=== PATIENT | female | born 1970 | race Caucasian/White ===

== ENCOUNTER → 2017-03-27 | Outpatient (CLI) | payer OTHER ==
[2017-03-27 17:41] LABS: ALBUMIN 4.1 GM/DL (3.2-5.2); ALBUMIN/GLOBULIN RATIO 1.11 (1.00-1.93); ALKALINE PHOSPHATASE 89 U/L (45-117); ALT/SGPT 36 U/L (12-78); ANION GAP 7 MEQ/L (8-16); AST/SGOT 17 U/L (15-37); BILIRUBIN,TOTAL 0.5 MG/DL (0.2-1.0); BLOOD UREA NITROGEN 21 MG/DL (7-18); CALCIUM LEVEL 9.6 MG/DL (8.5-10.1); CARBON DIOXIDE LEVEL 26 MEQ/L (21-32); CHLORIDE LEVEL 104 MEQ/L (98-107); CHOLESTEROL LEVEL 209 MG/DL (<200); CREATININE FOR GFR 0.92 MG/DL (0.55-1.02); GLOMERULAR FILTRATION RATE > 60.0 (>58); GLUCOSE, FASTING 101 MG/DL (70-105); POTASSIUM SERUM 4.3 MEQ/L (3.5-5.1); SODIUM LEVEL 137 MEQ/L (136-145); TOTAL PROTEIN 7.8 GM/DL (6.4-8.2); TRIGLYCERIDES LEVEL 52 MG/DL (<150)
== END ==
LOC: M WUC 11:15
PROVIDERS: ATTEND Emergency Medicine
DX: I10 Essential (primary) hypertension (principal); E55.9 Vitamin D deficiency, unspecified; R73.01 Impaired fasting glucose

== ENCOUNTER 2017-05-22 07:43 | Day surgery (SDC) | payer OTHER ==
[~2017-05-22] VITALS: Ht 167.6 cm; Wt 90.7 kg
[2017-05-22] VITALS (7 sets, daily range): BP systolic 99–110; BP diastolic 55–67
[~2017-05-22 07:43] MED LIST: AMIT50TA PO; LOSA100T8 PO; PHEN30CA2 PO
[2017-05-22] MEDS ORDERED: LR 1,000 ML IV SCH ×2 (08:00→12:15)
[2017-05-22] MEDS: LR 1,000 ML IV SCH ×3 (08:14→18:24)
[2017-05-22 08:53] LABS: MEAN CORPUSCULAR HEMOGLOBIN 31.8 pg (27.0-33.0); MEAN CORPUSCULAR HGB CONC 33.9 g/dl (32.0-36.5); MEAN CORPUSCULAR VOLUME 93.8 fl (80.0-96.0); RED CELL DISTRIBUTION WIDTH 13.1 % (11.5-14.5); WHITE BLOOD COUNT 6.1 K/mm3 (4.0-10.0)
[2017-05-22] MEDS: LOSARTAN 50 MG TAB PO SCH (09:00)
[2017-05-22] MEDS: hydroCHLOROthiazide 12.5 MG CAPSULE PO SCH (09:00)
[2017-05-22] MEDS ORDERED: PROPOFOL 200 MG/20 ML VIAL As Ordered ONE ×2 (09:05→09:06)
[2017-05-22] MEDS ORDERED: KETOROLAC 60 MG/2 ML VIAL (J1885) As Ordered ONE ×2 (09:06→11:12)
[2017-05-22] MEDS ORDERED: LIDOCAINE 2% INJ 100 MG/5 ML SDV (FOR ANES.) As Ordered ONE (09:06)
[2017-05-22] MEDS ORDERED: dexameTHASONE 4 MG/ML 1ML VIAL (J1100) As Ordered ONE (09:06)
[2017-05-22] MEDS ORDERED: ONDANSETRON 4MG/2ML VIAL (J2405) As Ordered ONE (09:06)
[2017-05-22] MEDS ORDERED: ROCURONIUM BROMIDE 50 MG/5 ML VIAL/SYRINGE As Ordered ONE ×2 (09:06→10:22)
[2017-05-22] MEDS ORDERED: MIDAZOLAM INJ 2 MG/2 ML VIAL (J2250) As Ordered ONE (10:22)
[2017-05-22] MEDS ORDERED: GLYCOPYRROLATE INJ 0.2 MG/ML 2 ML VIAL As Ordered ONE ×2 (10:22→11:12)
[2017-05-22] MEDS ORDERED: fentaNYL 250 MCG/5 ML INJECTION (J3010) As Ordered ONE (10:22)
[2017-05-22] MEDS ORDERED: NEOSTIGMINE 1MG/ML 5 ML SYRINGE (J2710) As Ordered ONE (11:12)
[2017-05-22] MEDS ORDERED: MORPHINE 1MG/ML IN 0.9% NACL 100ML IV BAG As Ordered ONE (11:47)
[2017-05-22] MEDS: METOCLOPRAMIDE INJ 10MG/2ML VIAL (J2765) IV PRN ×2 (12:00→12:30)
[2017-05-22] MEDS ORDERED: NORCO, ANEXSIA 5/325MG TABLET (HYDROcodone/ACETAMINOPHEN) PO PRN (12:00)
[2017-05-22] MEDS ORDERED: MORPHINE 1MG/ML IN 0.9% NACL 100ML IV BAG IV PRN (12:00)
[2017-05-22] MEDS ORDERED: IBUPROFEN 600 MG TAB PO PRN (12:00)
[2017-05-22] MEDS ORDERED: NALOXONE INJ 0.4 MG/1 ML VIAL (J2310) IV PRN (12:00)
[2017-05-22] MEDS ORDERED: EPIDURAL/PCA KEYS XX PRN (12:00)
[2017-05-22] MEDS ORDERED: diphenhydrAMINE INJ 50MG/ML VIAL (J1200) IV PRN (12:00)
[2017-05-22] MEDS ORDERED: NALBUPHINE HCL 10 MG/ML AMP (J2300) IV PRN (12:00)
[2017-05-22] MEDS ORDERED: PERCOCET 5MG/325MG TAB As Ordered ONE (12:01)
[2017-05-22] MEDS ORDERED: METOCLOPRAMIDE INJ 10MG/2ML VIAL (J2765) As Ordered ONE (12:02)
[2017-05-22] MEDS: PERCOCET 5MG/325MG TAB PO PRN ×2 (12:10→12:38)
[2017-05-22] MEDS ORDERED: MORPHINE 2 MG/ML 1ML SYRINGE IV PRN (12:15)
[2017-05-22] MEDS ORDERED: fentaNYL 100 MCG/2 ML INJECTION (J3010) IV PRN (12:15)
[2017-05-22] MEDS ORDERED: ONDANSETRON 4MG/2ML VIAL (J2405) IV PRN (12:15)
[2017-05-22] MEDS ORDERED: AMITRIPTYLINE 50 MG TAB PO SCH (21:00)
[2017-05-23] VITALS: BP 94/55
[2017-05-23] MEDS: LR 1,000 ML IV SCH ×2 (02:47→04:00)
[2017-05-23 04:00] VITALS: BP 105/64
[2017-05-23] MEDS ORDERED: NORCO, ANEXSIA 5/325MG TABLET (HYDROcodone/ACETAMINOPHEN) PO PRN (06:00)
[2017-05-23 08:00] VITALS: BP 115/56
[2017-05-23 08:22] LABS: MEAN CORPUSCULAR HEMOGLOBIN 32.1 pg (27.0-33.0); MEAN CORPUSCULAR HGB CONC 34.1 g/dl (32.0-36.5); MEAN CORPUSCULAR VOLUME 94.3 fl (80.0-96.0); RED CELL DISTRIBUTION WIDTH 13.3 % (11.5-14.5); WHITE BLOOD COUNT 10.3 K/mm3 (4.0-10.0)
[2017-05-23 09:00] VITALS: BP 115/56
[2017-05-23] MEDS: hydroCHLOROthiazide 12.5 MG CAPSULE PO SCH (09:00)
[2017-05-23] MEDS: LOSARTAN 50 MG TAB PO SCH (09:00)
[2017-05-23] MEDS ORDERED: MOTR200T44 PO (10:03)
[2017-05-23] MEDS ORDERED: LORT5TAB PO (10:03)
--- NOTE | 2017-05-23 15:38 | RO ---
DATE OF PROCEDURE: 05/22/2017 PREOPERATIVE DIAGNOSES/INDICATION FOR SURGERY: Dysmenorrhea, menorrhagia, dyspareunia and tenderness to the uterus on pelvic examination. POSTPROCEDURE DIAGNOSES: Dysmenorrhea, menorrhagia, dyspareunia and tenderness to the uterus on pelvic examination, fibroids. PROCEDURE: Laparoscopic assisted vaginal hysterectomy with bilateral salpingo-oophorectomy. SURGEON: Nasra Sage MD [employer] SALES ASSOCIATE: None. ANESTHESIA: General endotracheal anesthesia. DESCRIPTION OF PROCEDURE: La was brought to the operating room where sufficient general endotracheal anesthesia was induced, and she was prepped, draped and positioned in the usual sterile fashion with the uterine manipulator and the García with the ability to backfill placed. Attention was turned to the abdomen where a transverse incision was made over the line of her previous incision. Sharp and blunt dissection were continued through the subcutaneous tissues to the level of the rectus fascia, which was transversely incised, secured with #0 Vicryl retention sutures and then the peritoneum was entered under direct visualization and the Leslie cannula placed into the peritoneal cavity in an open laparoscopic technique. This was then secured with 0 Vicryl retention suture and CO2 insufflation was then begun. After adequate CO2 insufflation, the peritoneal cavity was examined. There were normal shiny peritoneal surfaces throughout. There were no excrescences, ascites or exudate. There was a left ovarian cyst and some bulkiness to the uterus, consistent with fibroids. This is documented in the operative photos. There was also evidence of a previous tubal ligation and on the descending colon some diverticulum that were not active. There were also some minor adhesions of the descending colon, consistent with diverticular activity in the past. Again, not active now. The 45 Enseal was placed through the operative port at the laparoscope and this was used to cauterize and transect the infundibulopelvic ligaments, which using the uterine manipulator we were elevate well away from the ureters and the bowel. We then continued through the broad ligament and to the round, which was carefully cauterized and incised bilaterally. We then continued the dissection in the broad ligament to facilitate uterine mobility and then using just cold scissors created the bladder flap anteriorly and we back filled the bladder as needed to be sure that we were well away from the bladder with this dissection. We then turned our attention to the vaginal portion of the case. The abdominal instruments were removed and the light turned off. Attention was turned to the cervix. The uterine manipulator was removed. The anterior and posterior aspects of the cervix were grasped with single toothed tenaculum and a circumferential incision was made around the base of the cervix through the vaginal epithelium. Cardinal ligaments were isolated, clamped, transected and ligated using D'Cruz clamps, which were used throughout this portion of the case and #0 Vicryl suture was used throughout this portion of the case. The uterosacral ligaments were then similarly clamped, transected and ligated. The peritoneum and posterior reflection of the peritoneum was entered and the dissection was continued anteriorly to join up where we had already dissected the anterior reflection of the peritoneum and with the bladder safely away and the bowel safely away. We carefully clamped, transected and ligated the uterine vasculature until the uterus could be delivered. The fibroids made the uterus a little wide and a little bulky. We went ahead and transected it down the midline just so that we can get the pedicles into good view, as we dissected them. So the right side of the uterus was delivered with the ovary and tube attached. We the left side just for visualization and then brought that ovary and tube down and completed the dissection and of course all of that dissection of the uterus occurred in the vagina. We then visualized the pedicles using the retractors and sponge on a stick and the pedicles showed good hemostasis, angle stitches of #0 Vicryl were taken. Of course the uterosacrals were incorporated into the closure for support and the vaginal cuff was closed with a running lock stitch of #0 Vicryl. Good approximation and hemostasis achieved. The umbilical wound was carefully closed using the #0 Vicryl retention suture at the fascia and #3-0 Vicryl at the skin. The procedure was then ended. Estimated blood loss for the procedure 100 mL. Fluid replacement was crystalloid. Complications: None. Condition and Disposition: La tolerated the procedure well and was recovering in the recovery room in good condition.
== END 2017-05-23 11:30 | disposition home or self-care (01) ==
LOC: M SDC 07:43 → M PED 12:42 → M SDC 05-23 11:30
PROVIDERS: ATTEND Obstetrics & Gynecology
DX: N94.6 Dysmenorrhea, unspecified (principal); N94.10 Unspecified dyspareunia; N92.0 Excessive and frequent menstruation with regular cycle; D25.9 Leiomyoma of uterus, unspecified; N72 Inflammatory disease of cervix uteri; N84.0 Polyp of corpus uteri; N80.0 Endometriosis of uterus; I10 Essential (primary) hypertension; Z79.899 Other long term (current) drug therapy; Z88.8 Allergy status to other drugs, medicaments and biological substances; Z87.891 Personal history of nicotine dependence
CPT/HCPCS: 36415; 58552; 85027; 86850; 86900; 86901; 88307; J0690; J1100; J1885; J2250; J2405; J2710; J2765; J3010

== ENCOUNTER 2017-07-06 16:26 | Emergency (ER) | payer OTHER ==
[~2017-07-06] VITALS: Ht 167.6 cm; Wt 91.0 kg
[~2017-07-06 16:26] MED LIST changes: +LORT5TAB PO; +MOTR200T44 PO
--- NOTE | 2017-07-06 18:51 | REP ---
Clinical: Trauma. Technique: AP, lateral, bilateral oblique views of the left knee. Findings: Degenerative changes are appreciated including cortical irregularity and spurring . No definite acute fracture or dislocation is appreciated. Swelling and possible small effusion cannot be excluded. Impression: Degenerative changes. No definite acute fracture or dislocation. Signed by Anival Dias MD 07/06/2017 06:43 P
--- NOTE | 2017-07-06 18:52 | REP ---
Clinical: Trauma. Technique: Neutral and frog lateral views of the left femur. Findings: Moderate arthritic degenerative change at the hip and knee joint are appreciated. No obvious acute fracture or dislocation. No subcutaneous emphysema or radiodense foreign body. Impression: Mild/moderate arthritic degenerative changes at the hip and knee. No obvious acute fracture dislocation. Signed by Anival Dias MD 07/06/2017 06:44 P
--- NOTE | 2017-07-06 18:53 | REP ---
Clinical: Trauma. Technique: AP and lateral views of the left tibia / fibula. Findings: Mild arthritic degenerative changes at the knee and ankle joint are appreciated along with calcaneal heal spur. No definite acute fracture dislocation is appreciated. No subcutaneous emphysema or radiodense foreign body. Impression: Arthritic degenerative changes at the knee and ankle. No definite acute fracture or dislocation. Signed by Anival Dias MD 07/06/2017 06:45 P
[2017-07-06] MEDS ORDERED: PERCOCET 5MG/325MG TAB PO ONE (19:00)
[2017-07-06] MEDS ORDERED: PERC5TAB12 PO (19:08)
[2017-07-06 19:30] VITALS: BP 138/72
== END 2017-07-06 19:36 | disposition home or self-care (01) ==
LOC: M ED 16:26 → EDBD 16:26 → M ED 19:36
DX: M23.92 Unspecified internal derangement of left knee (principal); W07.XXXA Fall from chair, initial encounter; Y92.019 Unspecified place in single-family (private) house as the place of occurrence of the external cause; Y93.89 Activity, other specified; Y99.8 Other external cause status; I10 Essential (primary) hypertension; Z79.899 Other long term (current) drug therapy; Z88.8 Allergy status to other drugs, medicaments and biological substances

== ENCOUNTER → 2017-08-12 | Outpatient (CLI) | payer OTHER ==
[~2017-08-12] MED LIST changes: +PERC5TAB12 PO
[2017-08-12 19:42] LABS: BASO % 0.5 % (0.0-1.0); EOS # 0.3 10^3/uL (0.0-0.50); EOS % 3.6 % (0.0-3.0); IMMATURE GRANULOCYTE % 0.2 % (0-0); LYMPH # 1.7 10^3/uL (1.5-4.5); LYMPH % 19.8 % (24.0-44.0); MEAN CORPUSCULAR HEMOGLOBIN 31.3 pg (27.0-33.0); MEAN CORPUSCULAR HGB CONC 33.2 g/dl (32.0-36.5); MEAN CORPUSCULAR VOLUME 94.1 fl (80.0-96.0); MONO # 0.5 10^3/uL (0.0-0.8); MONO % 5.7 % (0.0-5.0); NEUTROPHILS # 6.2 10^3/uL (1.8-7.7); NEUTROPHILS % 70.2 % (36.0-66.0); PLATELET COUNT, AUTOMATED 242 10^3/uL (150-450); RED CELL DISTRIBUTION WIDTH 13.2 % (11.5-14.5); WHITE BLOOD COUNT 8.8 10^3/uL (4.0-10.0)
[2017-08-12 19:51] LABS: CALCIUM LEVEL 9.4 MG/DL (8.5-10.1); CREATININE FOR GFR 1.13 MG/DL (0.55-1.02); GLOMERULAR FILTRATION RATE 54.5 (>58); POTASSIUM SERUM 4.1 MEQ/L (3.5-5.1)
== END ==
LOC: M WUC 15:48
PROVIDERS: ATTEND Emergency Medicine
DX: M23.612 Other spontaneous disruption of anterior cruciate ligament of left knee (principal)

== ENCOUNTER → 2018-02-19 | Outpatient (CLI) | payer OTHER ==
[~2018-02-19] MED LIST changes: -AMIT50TA PO; -LORT5TAB PO; -LOSA100T8 PO; -MOTR200T44 PO; -PERC5TAB12 PO; -PHEN30CA2 PO; +PROHANCE 279.3MG/ML 15ML VIAL (A9576) As Ordered; +PROHANCE 279.3MG/ML 5ML VIAL (A9576) As Ordered
== END ==
LOC: M RAD 12:49
DX: R92.8 Other abnormal and inconclusive findings on diagnostic imaging of breast (principal); Z80.3 Family history of malignant neoplasm of breast
CPT/HCPCS: A9576

== ENCOUNTER → 2018-12-12 | Outpatient (REF) | payer OTHER ==
[~2018-12-12] MED LIST changes: +AMIT50TA PO; +LORT5TAB PO; +LOSA100T8 PO; +MOTR200T44 PO; +PERC5TAB12 PO; +PHEN30CA2 PO; -PROHANCE 279.3MG/ML 15ML VIAL (A9576) As Ordered; -PROHANCE 279.3MG/ML 5ML VIAL (A9576) As Ordered
== END ==
LOC: M LAB REF 11:30
PROVIDERS: ATTEND Physician Assistant
DX: R30.0 Dysuria (principal)

== ENCOUNTER 2019-11-04 09:03 | Day surgery (SDC) | payer OTHER ==
[~2019-11-04] VITALS: Ht 167.6 cm; Wt 88.4 kg
[~2019-11-04 09:03] MED LIST changes: +NS 1,000 ML IV ONE
--- NOTE | 2019-11-04 11:09 | ROOR ---
Patient Name: Uriah Shipman Procedure Date: 11/04/2019 10:50 AM Date of : 1970 Age: 49 Room: [facility] Gender: Female Note Status: Finalized Procedure: Colonoscopy Indications: Screening for colorectal malignant neoplasm Providers: Boone Rosado Jr, MD Referring MD: VIRGILIO Hutson Requesting Provider: Medicines: Propofol per Anesthesia Complications: No immediate complications. Procedure: Pre-Anesthesia Assessment: - Prior to the procedure, a History and Physical was performed, and patient medications and allergies were reviewed. The patient is competent. The risks and benefits of the procedure and the sedation options and risks were discussed with the patient. All questions were answered and informed consent was obtained. Patient identification and proposed procedure were verified by the physician and the nurse in the pre-procedure area and in the procedure room. Mental Status Examination: alert and oriented. Airway Examination: normal oropharyngeal airway and neck mobility. Respiratory Examination: clear to auscultation. CV Examination: normal. ASA Grade Assessment: II - A patient with mild systemic disease. After reviewing the risks and benefits, the patient was deemed in satisfactory condition to undergo the procedure. The anesthesia plan was to use moderate sedation / analgesia (conscious sedation). Immediately prior to administration of medications, the patient was re-assessed for adequacy to receive sedatives. The heart rate, respiratory rate, oxygen saturations, blood pressure, adequacy of pulmonary ventilation, and response to care were monitored throughout the procedure. The physical status of the patient was re-assessed after the procedure. The Colonoscope was introduced through the anus and advanced to the cecum, identified by appendiceal orifice and ileocecal valve. The colonoscopy was performed without difficulty. The patient tolerated the procedure well. The quality of the bowel preparation was adequate. Findings: The rectum, recto-sigmoid colon, descending colon, transverse colon, ascending colon, cecum, appendiceal orifice and ileocecal valve appeared normal. Scattered small-mouthed diverticula were found in the sigmoid colon. Impression: - The rectum, recto-sigmoid colon, descending colon, transverse colon, ascending colon, cecum, appendiceal orifice and ileocecal valve are normal. - Diverticulosis in the sigmoid colon. - No specimens collected. Recommendation: - Discharge patient to home (ambulatory). - Repeat colonoscopy in 10 years for screening purposes. Boone Rosado MD Boone Rosado Jr, MD 11/04/2019 11:09:02 AM Electronically signed by Boone Rosado Jr, MD Number of Addenda: 0 Note Initiated On: 11/04/2019 10:50 AM Estimated Blood Loss: Estimated blood loss: none.
[2019-11-04] MEDS ORDERED: LIDOCAINE 2% INJ 100 MG/5 ML SDV (FOR ANES.) As Ordered ONE (11:24)
[2019-11-04] MEDS ORDERED: propofoL 200 MG/20 ML VIAL As Ordered ONE (11:24)
[2019-11-04 11:30] VITALS: BP 131/82
== END 2019-11-04 11:38 | disposition home or self-care (01) ==
LOC: M OPP 09:03
PROVIDERS: ATTEND Surgery
DX: Z12.11 Encounter for screening for malignant neoplasm of colon (principal); K57.30 Diverticulosis of large intestine without perforation or abscess without bleeding; Z79.899 Other long term (current) drug therapy; Z88.8 Allergy status to other drugs, medicaments and biological substances

== ENCOUNTER → 2020-07-15 | Outpatient (CLI) | payer OTHER ==
[~2020-07-15] MED LIST changes: -NS 1,000 ML IV ONE
== END ==
LOC: M LABSMTC 11:57
PROVIDERS: ATTEND Orthopaedic Surgery
DX: Z01.812 Encounter for preprocedural laboratory examination (principal); Z20.828 Contact with and (suspected) exposure to other viral communicable diseases

== ENCOUNTER → 2020-07-15 | Outpatient (CLI) | payer OTHER ==
--- NOTE | 2020-07-15 09:53 | ECGEPIP ---
[facility] Test Date: 2020-07-15 Pat Name: MARÍA LORENZANA Department: Room: - Gender: Female Federal Judge: RF : [id number] Requested By: JIMMIE Mackay Order Number: [id number] Reading MD: Dank Ortega Measurements Intervals [place] Rate: 73 P: 59 CO: 147 QRS: 35 QRSD: 98 T: 11 QT: 365 QTc: 404 Interpretive Statements Normal sinus rhythm Low QRS complex voltage in the limb leads Nonspecific ST-T wave abnormalities Comparison tracing not on file Electronically Signed on 07-15-2020 9:53:00 EDT by Dank Ortega
== END ==
LOC: M EKG 09:37
PROVIDERS: ATTEND Orthopaedic Surgery
DX: Z01.810 Encounter for preprocedural cardiovascular examination (principal); M67.471 Ganglion, right ankle and foot

== ENCOUNTER → 2020-07-20 | Outpatient (REF) | payer OTHER | LOC: M LAB REF 17:10 | PROVIDERS: ATTEND Orthopaedic Surgery | DX: M67.471 Ganglion, right ankle and foot (principal) ==

== ENCOUNTER → 2021-08-09 | Outpatient (CLI) | payer OTHER ==
--- NOTE | 2021-08-09 08:50 | REP ---
INDICATION: LIVER MASS COMPARISON: None. TECHNIQUE: Real time hare scale ultrasound examination using curved array transducer. FINDINGS: Liver demonstrates coarsened echotexture along with 4.8 cm simple right hepatic cyst and 1.0 cm simple right hepatic cyst. Color evaluation demonstrates mild dilatation to the main portal vein measuring 17 mm diameter with normal flow direction. Pancreas is incompletely evaluated due to interposed bowel gas. The gallbladder is normal and without gallstones, wall thickening, or pericholecystic fluid. No biliary ductal dilatation is appreciated and the common bile duct measures 4.6 mm diameter. Right kidney is normal in reniform shape without hydronephrosis and measures 10.4 x 4.8 x 3.8 cm. A 1.6 cm rounded midpole area suggests junctional defect and less likely true mass. No ascites in the visualized right upper quadrant. IMPRESSION: 1. Simple appearing hepatic cysts. 2. Likely benign findings within the kidney. Mass lesion is less likely. Pre and postcontrast CT of the abdomen may be obtained further investigation. <Electronically signed by Anival Dias > 08/09/21 [id number]
== END ==
LOC: M RAD 07:05
PROVIDERS: ATTEND Physician Assistant
DX: R16.0 Hepatomegaly, not elsewhere classified (principal); K76.89 Other specified diseases of liver

== ENCOUNTER → 2021-10-01 | Outpatient (CLI) | payer OTHER ==
[~2021-10-01] MED LIST changes: +ISOVUE-370 76% 100ML VIAL As Ordered ONE
--- NOTE | 2021-10-01 11:16 | REP ---
INDICATION: ABN IMAG RT KIDNEY MID POLE ? CYST VS MASS. COMPARISON: None TECHNIQUE: Axial precontrast, arterial phase, portal venous phase, and delayed phased images of the abdomen with coronal and sagittal reformations using 100 cc Isovue 370 intravenous contrast material[address] CT examination was performed using the following dose reduction techniques: Automated exposure control, adjustment of mA and/or kv according to the patient's size, and the use of iterative reconstruction technique. FINDINGS: The kidneys demonstrate lobulated contour along with focal subtle scarring along the inferior pole of the right kidney. There is no evidence for renal mass lesion, cystic abnormality, or nephrolithiasis. No hydronephrosis or perinephric stranding. Liver demonstrates few scattered simple benign cysts including 4.7 cm cyst in the right lobe. Spleen, pancreas, gallbladder, bilateral adrenal glands are normal. Visualized portions of the enteric system are normal. No ascites. No free air. No intraperitoneal or retroperitoneal adenopathy. Abdominal aorta and vasculature appear normal. Musculoskeletal structures are intact and without acute osseous abnormality. IMPRESSION: 1. No acute abdominopelvic pathology appreciated. 2. Kidneys demonstrate nonacute benign findings without mass lesion or significant renal abnormality. 3. Benign hepatic cysts. <Electronically signed by Anival Dias > 10/01/21 [id number]
== END ==
LOC: M RAD 10:34
PROVIDERS: ATTEND Physician Assistant
DX: K76.89 Other specified diseases of liver (principal); R93.5 Abnormal findings on diagnostic imaging of other abdominal regions, including retroperitoneum
CPT/HCPCS: 74170; Q9967

== ENCOUNTER → 2022-11-05 | Outpatient (CLI) | payer OTHER ==
[~2022-11-05] MED LIST changes: -ISOVUE-370 76% 100ML VIAL As Ordered ONE; -PHEN30CA2 PO; +PHEN30CA21 PO
== END ==
LOC: M WHC 15:00
PROVIDERS: ATTEND Surgery
DX: Z12.31 Encounter for screening mammogram for malignant neoplasm of breast (principal)

== ENCOUNTER → 2023-04-15 | Outpatient (CLI) | payer OTHER ==
[~2023-04-15] MED LIST changes: +PROHANCE 279.3MG/ML 15ML VIAL ONE
== END ==
LOC: M PLAIMG 08:19
PROVIDERS: ATTEND Nurse Practitioner Women's Health
DX: R92.2 Inconclusive mammogram (principal); Z91.89 Other specified personal risk factors, not elsewhere classified; Z80.3 Family history of malignant neoplasm of breast
CPT/HCPCS: A9576; C8908

== ENCOUNTER → 2023-11-06 | Outpatient (CLI) | payer OTHER ==
[~2023-11-06] MED LIST changes: -PROHANCE 279.3MG/ML 15ML VIAL ONE
== END ==
LOC: M WHC 07:11
PROVIDERS: ATTEND Nurse Practitioner Women's Health
DX: Z12.31 Encounter for screening mammogram for malignant neoplasm of breast (principal)

== ENCOUNTER → 2024-06-18 | Outpatient (CLI) | payer OTHER ==
[~2024-06-18] MED LIST changes: +PROHANCE 279.3MG/ML 15ML VIAL ONE
== END ==
LOC: M PLAIMG 08:09
PROVIDERS: ATTEND Nurse Practitioner Women's Health
DX: R92.2 Inconclusive mammogram (principal); Z80.3 Family history of malignant neoplasm of breast; Z91.89 Other specified personal risk factors, not elsewhere classified
CPT/HCPCS: A9576; C8908

== ENCOUNTER → 2024-09-17 | Outpatient (REF) | payer OTHER ==
[~2024-09-17] MED LIST changes: -PROHANCE 279.3MG/ML 15ML VIAL ONE
== END ==
LOC: M LAB REF 19:28
PROVIDERS: ATTEND Student in an Organized Health Care Education/Training Program
DX: R30.0 Dysuria (principal)

== ENCOUNTER → 2025-04-28 | Outpatient (CLI) | payer OTHER | LOC: M WHC 07:13 | PROVIDERS: ATTEND Nurse Practitioner Family | DX: Z12.31 Encounter for screening mammogram for malignant neoplasm of breast (principal); R92.333 Mammographic heterogeneous density, bilateral breasts ==

== ENCOUNTER → 2025-05-25 | Outpatient (CLI) | payer OTHER | LOC: M WHC 13:03 | PROVIDERS: ATTEND Nurse Practitioner Family | DX: R92.333 Mammographic heterogeneous density, bilateral breasts (principal); N63.11 Unspecified lump in the right breast, upper outer quadrant; N63.15 Unspecified lump in the right breast, overlapping quadrants | CPT/HCPCS: 76642; 77065; G0279 ==